=== PATIENT | female | born 1965 | race Caucasian/White ===

== ENCOUNTER 2025-01-02 18:52 | Emergency (ER) | payer BC ==
[2025-01-02] MEDS ORDERED: HYDROcodone/Acetaminophen 5/325 mg Tablet ONE (19:07)
== END 2025-01-02 20:32 | disposition home or self-care (01) ==
LOC: MADERS 18:52
DX: S42.254A Nondisplaced fracture of greater tuberosity of right humerus, initial encounter for closed fracture (principal); W19.XXXA Unspecified fall, initial encounter; Y93.01 Activity, walking, marching and hiking
CPT/HCPCS: 99283